=== PATIENT | male | born 1975 | race Caucasian/White ===

== ENCOUNTER 2016-08-06 15:06 | Emergency (ER) | payer OTHER ==
[2016-08-06 15:42] VITALS: BMI 22.0
--- NOTE | 2016-08-06 15:45 | PDOC ---
History of Present Illness <Moises Hernandez - Last Filed: 08/06/16 15:48> - General History Source: Patient Exam Limitations: No Limitations - History of Present Illness Initial Comments: 08/06/16 15:55 Patient is a 40 year old male with significant PMH of gastritis & anxiety/ depression who presents to ED with chest tightness since 2pm today. He states the pressure is substernal, is associated with a tingle in his left arm, 6/10 and constant but improving. He has episodes of heartburn often, and states that this feels similar to those episodes, but worse. He also believes he is having a panic attack, as he has multiple family stressors lately. He had one episode of acidic vomit this morning, which he has several time a month usually. Denies headache, dizziness, GI symptoms ie. nausea, diarrhea, constipation. Denies any suicidal ideas. <Guy Chino - Last Filed: 08/07/16 07:08> - General Chief Complaint: Chest Pain Stated Complaint: CHEST PAIN Time Seen by Provider: 08/06/16 15:14 Past History <Moises Hernandez - Last Filed: 08/06/16 15:48> - Travel Traveled outside of the country in the last 30 days: No Close contact w/someone who was outside of country & ill: No - Past Medical History Other medical history: Gastritis, Anxiety/Depression - Family Disease History Family Disease History: Diabetes: Father (HTN, Triple bypass recently), Heart Disease: Father - Immunization History Immunization Up to Date: Yes - Psycho/Social/Smoking Cessation Hx Anxiety: No Suicidal Ideation: No Smoking Status: Yes Smoking History: Former smoker Years of Tobacco Use: 20 Have you smoked in the past 12 months: Yes Number of Cigarettes Smoked Daily: 5 If you are a former smoker, when did you quit?: 01/2016 Information on smoking cessation initiated: No Hx Alcohol Use: No Drug/Substance Use Hx: No Substance Use Type: None <Guy Chino - Last Filed: 08/07/16 07:08> - Past Medical History Allergies/Adverse Reactions: Allergies Allergy/AdvReac Type Severity Reaction Status Date / Time No Known Allergies Allergy Verified 10/20/15 01:12 Home Medications: Ambulatory Orders Omeprazole [Prilosec] 40 mg PO DAILY 10/20/15 Ranitidine HCl [Zantac] 150 mg PO BID 10/20/15 Sucralfate [Carafate] 1 gm PO BID #10 tablet 10/20/15 Review of Systems - Review of Systems Able to Perform ROS?: Yes Is the patient limited Citizen Of [place] proficient: No Respiratory: Yes: SOB with Exertion Cardiac (ROS): Yes: Chest Tightness All Other Systems: Reviewed and Negative <Guy Chino - Last Filed: 08/07/16 07:08> *Physical Exam - Vital Signs Last Vital Signs Temp Pulse Resp BP Pulse Ox 97.7 F 77 16 111/49 100 08/06/16 15:36 08/06/16 15:36 08/06/16 15:36 08/06/16 15:36 08/06/16 15:36 <Moises Hernandez - Last Filed: 08/06/16 15:48> - Vital Signs Last Vital Signs Temp Pulse Resp BP Pulse Ox 97.7 F 77 16 111/49 100 08/06/16 15:36 08/06/16 15:36 08/06/16 15:36 08/06/16 15:36 08/06/16 15:36 - Physical Exam General Appearance: Yes: Nourished, Appropriately Dressed, Apparent Distress HEENT: positive: EOMI, TAMARA, Normal ENT Inspection Neck: positive: Trachea midline, Normal Thyroid, Supple Respiratory/Chest: positive: Lungs Clear, Normal Breath Sounds Cardiovascular: positive: Regular Rhythm, Regular Rate, S1, S2 Gastrointestinal/Abdominal: positive: Normal Bowel Sounds, Flat, Soft Musculoskeletal: positive: Normal Inspection Extremity: positive: Normal Inspection, Normal Range of Motion Integumentary: positive: Normal Color, Dry, Warm Neurologic: positive: crabbing machine operator II-XII NML intact, Fully Oriented, Alert, Normal Mood/ Affect, Motor Strength 5/5 <Guy Chino - Last Filed: 08/07/16 07:08> Heart Score/ECG Review - History History: Moderately suspicious - Electrocardiogram EKG: Normal - Age Age: </= 44 - Risk Factors Risk Factors Heart Score: Yes Smoking History Based on the list above the patient has:: 1-2 risk factors - Troponin Troponin: </= normal limit - Score Heart Score - Total: 2 <Moises Hernandez - Last Filed: 08/06/16 15:48> - History History: Slightly suspicious - Electrocardiogram EKG: Non specific repolarization disturbance - Age Age: </= 44 - Risk Factors Risk Factors Heart Score: Yes Smoking History, Yes Positive family hx of cardiac disease Based on the list above the patient has:: 1-2 risk factors - ECG Impressions Comment:: 08/06/16 15:54 Normal Sinus Rhythm Right bundle branch block 66BPM <Guy Chino - Last Filed: 08/07/16 07:08> ED Treatment Course - LABORATORY CBC & Chemistry Diagram: 08/06/16 16:32 08/06/16 17:11 <Guy Chino - Last Filed: 08/07/16 07:08> Medical Decision Making - Medical Decision Making 08/06/16 16:00 Patient is extremely anxious and notes severe acid reflux at the moment. Given IV PPI and ordered CBC, CMP, Cardiac profile x2 & CXR. If both troponins come back (-), okay to discharge patient later on for outpatient cardiology followup. Will monitor. 08/06/16 17:00 Patient states he is feeling less anxious and chest tightness is resolving. Will discuss case with patient's PMD Dr Saskia Loyola after first set of troponins come back. 08/06/16 18:49 First troponin negative. Will draw another at 9pm. If negative, patient can be discharged with instructions to visit PCP/social media campaign manager tomorrow for further workup. Patient states he feels back to normal after protonix & has 0/10 chest pressure or pain. <Guy Chino - Last Filed: 08/07/16 07:08> *DC/Admit/Observation/Transfer <Moises Hernandez - Last Filed: 08/06/16 15:48> <Guy Chino - Last Filed: 08/07/16 07:08> Diagnosis at time of Disposition: Atypical chest pain - Discharge Dispostion Disposition: HOME Condition at time of disposition: Good - Referrals Referrals: Saskia Loyola [Primary Care Provider] - - Patient Instructions Printed Discharge Instructions: DI for Atypical Chest Pain Additional Instructions: You have had 2 troponins that were negative. Your chest xray was normal. It is very important that you follow up with Dr. Loyola. If you have any further chest pains, please return to the ER for further evaluation. Please call to schedule an appointment with your doctor.
[2016-08-06] MEDS ORDERED: PANTOPRAZOLE SODIUM 40 MG in SODIUM CHLORIDE 100 ML IVPB ONE (15:46)
[2016-08-06] MEDS ORDERED: PANTOPRAZOLE SODIUM 100 ML IVPB ONE (16:33)
[2016-08-06 16:40] LABS: BASOPHIL 0.5 % (0-2.0); EOSINOPHIL 0.4 % (0-4.5); MCH 29.6 pg (25.7-33.7); MCHC 33.7 g/dl (32.0-35.9); MEAN CELL VOLUME 87.7 fl (80-96); MEAN PLT VOLUME 10.7 fl (7.5-11.1); NEUTROPHILS 75.4 % (42.8-82.8); RDW 14.1 % (11.9-15.9); WHITE BLOOD COUNT 11.9 K/mm3 (4.0-10.0)
--- NOTE | 2016-08-06 16:54 | PDOC ---
Attending Attestation - Resident Resident Name: Guy Chino - ED Attending Attestation I have performed the following: I have examined & evaluated the patient, The case was reviewed & discussed with the resident, I agree w/resident's findings & plan, Exceptions are as noted - HPI HPI: 08/06/16 16:49 40y/o M + smoking history, anxiety p/w intermittent chest pain for 2 weeks. Admits to recent panic attack 2-3 weeks ago, since then random episodes of substernal chest pain with sob and palpitations. also with GERD sxs. - Physicial Exam PE: 08/06/16 16:51 VSS. lungs clear heart regular abd benign - Medical Decision Making 08/06/16 16:51 40y/o M with chest pain, anxiety, GERD. Low clinical suspicion for ACS given presentation and risk factors. HEART score 2 even with "moderately suspicious" history. Had normal stress test last summer in setting of his chest pain. EKG with RBBB, otherwise nonischemic. Clinically rules out for PE. will check trop x2, labs, cxr. If wnl, can discuss with Dr. Loyola to arrange expedited outpt cards eval. Pt signed out to oncoming ED physician to f/u the results, reassess the patient , and dispo accordingly.
[2016-08-06 18:20] LABS: ALBUMIN 4.1 g/dl (3.4-5.0); ANION GAP 11 (8-16); BILIRUBIN,TOTAL 0.7 mg/dL (0.2-1.0); CALCIUM 8.8 mg/dL (8.5-10.1); CO2 28 mmol/L (21-32); CREATININE 0.9 mg/dL (0.7-1.3); GLUCOSE,RANDOM 89 mg/dL (74-106); SGOT/AST 14 U/L (15-37); SGPT/ALT 18 U/L (12-78); TOT PROT 7.2 g/dl (6.4-8.2)
[2016-08-06 18:22] LABS: ALK PHOS 72 U/L (45-117); TROPONIN I < 0.02 ng/ml (0.00-0.05)
[2016-08-06 18:53] LABS: PLATELET COUNT 96 K/MM3 (134-434)
[2016-08-06 22:43] VITALS: BP 133/74; PULSE 73; TEMP 98.6
[2016-08-06 23:43] LABS: TROPONIN I < 0.02 ng/ml (0.00-0.05)
--- NOTE | 2016-08-06 23:50 | PDOC ---
*Physical Exam - Vital Signs Last Vital Signs Temp Pulse Resp BP Pulse Ox 98.6 F 73 18 133/74 100 08/06/16 22:43 08/06/16 22:43 08/06/16 22:43 08/06/16 22:43 08/06/16 22:43 ED Treatment Course - LABORATORY CBC & Chemistry Diagram: 08/06/16 16:32 08/06/16 17:11 - ADDITIONAL ORDERS Additional order review: Laboratory Results 08/06/16 08/06/16 08/06/16 21:14 17:11 16:32 Sodium 143 Cancelled Potassium 3.4 L Cancelled Chloride 104 Cancelled Carbon Dioxide 28 Cancelled Anion Gap 11 Cancelled BUN 11 D Cancelled Creatinine 0.9 Cancelled Creat Clearance w eGFR > 60 Cancelled Random Glucose 89 Cancelled Calcium 8.8 Cancelled Total Bilirubin 0.7 D Cancelled AST 14 L D Cancelled ALT 18 Cancelled Alkaline Phosphatase 72 Cancelled Creatine Kinase 83 89 Cancelled Troponin I < 0.02 < 0.02 Cancelled Total Protein 7.2 Cancelled Albumin 4.1 Cancelled 08/06/16 16:32 RBC 4.97 MCV 87.7 MCHC 33.7 RDW 14.1 MPV 10.7 Neutrophils % 75.4 D Lymphocytes % 19.6 D Monocytes % 4.1 Eosinophils % 0.4 Basophils % 0.5 - Medications Given in the ED: ED Medications Discontinued Medications Generic Name Dose Route Start Last Admin Trade Name Freq PRN Reason Stop Dose Admin Pantoprazole Sodium 40 mg/ 100 mls @ 200 mls/hr 08/06/16 15:46 08/06/16 16:33 Sodium Chloride IVPB 08/06/16 16:15 200 mls/hr ONCE ONE Administration Medical Decision Making - Medical Decision Making 08/06/16 23:48 Sign-out received from outgoing Emergency Physician Dr. Hernandez Pt interviewed and examined Ancillary studies reviewed Case discussed in detail with oncoming Emergency Physician including history, physical exam and ancillary studies. Two troponins negative. The patient reports feeling asymptomatic and well. Dr. Guy Chino had contacted Dr. Loyola's office. They state that he goes to a resident clinic. Will have the patient follow up with the resident clinic. I discussed the physical exam findings, ancillary test results and final diagnoses with the patient. I answered all of the patient's questions. The patient was satisfied with the care received and felt comfortable with the discharge plan and treatment plan. The patient will call their primary care physician within 24 hours to arrange follow-up and will return to the Emergency Department with any new, persistant or worsening symptoms. *DC/Admit/Observation/Transfer Diagnosis at time of Disposition: Atypical chest pain - Discharge Dispostion Disposition: HOME Condition at time of disposition: Good Admit: No - Referrals Referrals: Saskia Loyola [Primary Care Provider] - - Patient Instructions Printed Discharge Instructions: DI for Atypical Chest Pain Additional Instructions: You have had 2 troponins that were negative. Your chest xray was normal. It is very important that you follow up with Dr. Loyola. If you have any further chest pains, please return to the ER for further evaluation. Please call to schedule an appointment with your doctor.
--- NOTE | 2016-08-07 14:17 | EKG ---
Test Reason : Blood Pressure : / mmHG Vent. Rate : 066 BPM Atrial Rate : 066 BPM P-R Int : 140 ms QRS Dur : 138 ms QT Int : 410 ms P-R-T Axes : 067 078 058 degrees QTc Int : 429 ms NORMAL SINUS RHYTHM RIGHT BUNDLE BRANCH BLOCK ABNORMAL ECG NO PREVIOUS ECGS AVAILABLE Confirmed by FRANCISCO FIGUEREDO, GEETA ([id number]) on 08/07/2016 2:17:12 PM Referred By: Confirmed By:GEETA SINGH MD
== END 2016-08-07 00:03 | disposition home or self-care (01) ==
LOC: JER 15:06
PROC: 3E033GC Introduction of Other Therapeutic Substance into Peripheral Vein, Percutaneous Approach (ICD-10-PCS; principal; 2016-08-06)
DX: R07.89 Other chest pain (principal); Z87.891 Personal history of nicotine dependence; Z82.49 Family history of ischemic heart disease and other diseases of the circulatory system; F41.8 Other specified anxiety disorders
CPT/HCPCS: 36415; 71010-TC; 80053; 82550; 84484; 85025; 93005; 93010; 99284-25

== ENCOUNTER 2023-10-26 12:50 | Emergency (ER) | payer OTHER ==
[2023-10-26 12:58] VITALS: BP 112/73; PULSE 86; RESP 18; TEMP 98; BMI 29.6
== END 2023-10-26 14:13 | disposition home or self-care (01) ==
LOC: JERFT 12:50
DX: H00.011 Hordeolum externum right upper eyelid (principal)
CPT/HCPCS: 99283-25